=== PATIENT | female | born 2000 | race Caucasian/White ===

== ENCOUNTER 2019-05-14 07:17 | Emergency (ER) | payer MEDICAID, OTHER ==
[~2019-05-14] VITALS: Ht 170 cm; Wt 98.0 kg
[~2019-05-14 07:17] MED LIST: PRX10T PO
--- NOTE | 2019-05-14 07:44 | ED General ---
General Chief Complaint: Psych/Social Disorder Stated Complaint: ANXIETY Nursing Triage Note: Patient reports having a 'panic attack' starting 1 hour prior to arrival. states is having an arguement with her significant other. History of Present Illness Date Seen by Provider: May 14, 2019 Time Seen by Provider: 07:39 Initial Comments 18 yo female states she has long hx of depression currently taking generic prozac and gets panic attacks from time to time this AM had argument with SO, feels very anxious states unable to relax, not sleeping, not eating much has pressure in chest this AM but not concerned about medical condition no hx of asthma or any cardiac issues, and started after argument Allergies and Home Medications Allergies Coded Allergies: Penicillins (Verified Allergy, Unknown, Hives, 05/14/19) Home Medications Paroxetine Hcl 10 Mg Tablet, 1 TAB PO DAILY, (Reported) Patient Home Medication List Home Medication List Reviewed: Yes Review of Systems Review of Systems Constitutional: no symptoms reported EENTM: no symptoms reported Respiratory: no symptoms reported Cardiovascular: chest pain Gastrointestinal: no symptoms reported Genitourinary: no symptoms reported LMP: May 14, 2019 Musculoskeletal: no symptoms reported Skin: no symptoms reported Psychiatric/Neurological: Anxiety Past Liduqbs-Chtlfk-Kztmsc Hx Patient Social History Alcohol Use: Occasionally Uses Recreational Drug Use: No Recent Foreign Travel: No Contact w/Someone Who Travel: No Recent Infectious Disease Expo: No Ebola Symptoms: Denies Symptoms Listed Past Medical History Surgeries: Yes (tubes in ear) Respiratory: No Cardiac: No Neurological: No Reproductive Disorders: No Sexually Transmitted Disease: No Gastrointestinal: No Musculoskeletal: No Endocrine: No HEENT: No Cancer: No Psychosocial: Yes Sleep Difficulties, Anxiety, Depression Integumentary: No Blood Disorders: No Physical Exam Vital Signs Vital Signs - First Documented 05/14/19 07:21 Temp 37.0 Pulse 100 Resp 18 B/P (MAP) 129/82 Capillary Refill : Height, Weight, BMI Height: 5'6" Weight: 160lbs. oz. 72.240137un; 33.00 BMI Method:Stated General Appearance: Anxious Eyes: Bilateral Eye PERRL, Bilateral Eye EOMI HEENT: TMs Normal, Pharynx Normal Neck: Supple Respiratory: Lungs Clear, Normal Breath Sounds Cardiovascular: Regular Rate, Rhythm, No Murmur Gastrointestinal: Normal Bowel Sounds, Non Tender, Soft Back: Normal Inspection Extremity: Normal Inspection Neurologic/Psychiatric: Alert, Oriented x3, No Motor/Sensory Deficits, computer networking instructor adjunct II- XII Norm as Tested Skin: Warm/Dry Progress/Results/Core Measures Suspected Sepsis SIRS Temperature: Pulse: Respiratory Rate: Blood Pressure / Mean: Results/Orders Vital Signs/I&O 05/14/19 07:21 Temp 37.0 Pulse 100 Resp 18 B/P (MAP) 129/82 Capillary Refill : Progress Note : Progress Note pt given Ativan 2mg IM is somewhat better pt says she has occ had thoughts of self harm, but would never do anything has a daughter to take care of ti Rx ativan and ask her to follow up locally soon for cont mental health care Departure Impression Primary Impression: Anxiety Disposition: 01 HOME, SELF-CARE Condition: Stable Departure-Patient Inst. Decision time for Depature: 08:25 Referrals: NO,LOCAL PHYSICIAN (PCP/Family) Primary Care Physician Patient Instructions: Panic Disorder (DC) Add. Discharge Instructions: please follow up soon at [facility] or with [facility] [phone] discharge instructions reviewed with patient Scripts Lorazepam (Ativan) 1 Mg Tablet 1 MG SL BID PRN for ANXIETY for 7 Days, #14 TAB Prov: TANISHA MARTIN MD 05/14/19 TANISHA MARTIN MD May 14, 2019 07:44
[2019-05-14] MEDS ORDERED: LORazepam INJ 2 MG/ML (ATIVAN) VIAL IM ONE (07:45)
[2019-05-14] MEDS ORDERED: LORA-405 SL (07:52)
== END 2019-05-14 08:38 | disposition home or self-care (01) ==
LOC: ER FS 07:17
DX: F41.9 Anxiety disorder, unspecified (principal); F32.9 Major depressive disorder, single episode, unspecified; Z88.0 Allergy status to penicillin
CPT/HCPCS: 99283

== ENCOUNTER 2020-02-25 22:56 | Emergency (ER) | payer MEDICAID ==
[~2020-02-25 22:56] MED LIST changes: +LORA-405 SL
--- NOTE | 2020-02-25 23:23 | ED General ---
General Chief Complaint: General Problems/Pain Stated Complaint: WITHDRAL SYMPTOMS Nursing Triage Note: Pt states that she thinks she is still having withdrawal symptoms from stopping her antidepressant. Pt was taking Vraylar and stopped it about 3 weeks ago. Pt felt like she was having withdrawal symptoms and restarted the medication 3 days ago but still isn't feeling back to normal. Nursing Sepsis Screen: No Definite Risk History of Present Illness Date Seen by Provider: Feb 25, 2020 Time Seen by Provider: 23:22 Initial Comments Patient presents emergency department for evaluation of multiple symptoms including malaise fatigue anxiety chills tachycardia nausea and vomiting. Patient says that she stopped taking her antidepressant regular and her phentermine 3 weeks ago and says she has been feeling poorly since that time with fogginess and anxiety in her head and started back taking it 3 days ago and says that it has not helped and she has been having nausea and vomiting and unable to hold down foods for the past 3-4 days. She says she feels dehydrated. She denies any pain including no chest pain or abdominal pain and no shortness of breath cough congestion fevers unilateral weakness numbness or tingling. She says she feels that she is having withdrawals possibly from the antidepressant. She says she does not drink alcohol but she does smoke marijuana on an almost daily basis but not over the past several days. She is in no obvious distress with normal vital signs other than possible tachycardia at 150 bpm on the EKG and on initial vital signs however while I'm in the room her heart rate is at 120 on the monitor. Allergies and Home Medications Allergies Coded Allergies: Penicillins (Verified Allergy, Unknown, Hives, 05/14/19) Home Medications Lorazepam 1 Mg Tablet, 1 MG SL BID PRN for ANXIETY Prescribed by: TANISHA MARTIN on 05/14/19 0752 Paroxetine Hcl 10 Mg Tablet, 1 TAB PO DAILY, (Reported) Patient Home Medication List Home Medication List Reviewed: Yes Review of Systems Review of Systems Constitutional: malaise EENTM: no symptoms reported Respiratory: no symptoms reported Cardiovascular: no symptoms reported Gastrointestinal: no symptoms reported Genitourinary: no symptoms reported Musculoskeletal: no symptoms reported Skin: no symptoms reported Psychiatric/Neurological: No Symptoms Reported Hematologic/Lymphatic: No Symptoms Reported Past Hywotpx-Npmyng-Aqfffa Hx Patient Social History Recent Foreign Travel: No Contact w/Someone Who Travel: No Recent Infectious Disease Expo: No Past Medical History Surgeries: Yes (tubes in ear) Respiratory: No Cardiac: No Neurological: No Reproductive Disorders: No Sexually Transmitted Disease: No Gastrointestinal: No Musculoskeletal: No Endocrine: No HEENT: No Cancer: No Psychosocial: Yes Sleep Difficulties, Anxiety, Depression Integumentary: No Blood Disorders: No Physical Exam Vital Signs Vital Signs - First Documented 02/25/20 23:00 Temp 37.6 Pulse 155 Resp 20 B/P (MAP) 142/77 (98) Pulse Ox 100 O2 Delivery Room Air Capillary Refill : Less Than 3 Seconds Height, Weight, BMI Height: 5'6" Weight: 160lbs. oz. [id number]; 33.00 BMI Method:Stated General Appearance: No Apparent Distress, WD/WN HEENT: PERRL/EOMI Neck: Supple Respiratory: Lungs Clear, No Respiratory Distress Cardiovascular: Tachycardia Gastrointestinal: Non Tender, Soft Back: Normal Inspection Extremity: Normal Capillary Refill Neurologic/Psychiatric: Alert, Oriented x3 Skin: Warm/Dry Progress/Results/Core Measures Suspected Sepsis Recent Fever Within 48 Hours: No Infection Criteria Present: None New/Unexplained Altered Menta: No Sepsis Screen: No Definite Risk SIRS Temperature: Pulse: 155 Respiratory Rate: 20 Laboratory Tests 02/25/20 23:37: White Blood Count 11.8H Blood Pressure 142 /77 Mean: 98 Laboratory Tests 02/25/20 23:37: Creatinine 0.74, INR Comment 1.0, Platelet Count 344, Total Bilirubin 0.6 Results/Orders Lab Results Laboratory Tests Test 02/25/20 23:26 02/25/20 23:37 Range/Units Urine Color STRAW Urine Clarity CLEAR Urine pH 6.5 5-9 Urine Specific [place] <=1.005 1.016-1.022 Urine Protein NEGATIVE NEGATIVE Urine Glucose (UA) NEGATIVE NEGATIVE Urine Ketones NEGATIVE NEGATIVE Urine Nitrite NEGATIVE NEGATIVE Urine Bilirubin NEGATIVE NEGATIVE Urine Urobilinogen 0.2 < = 1.0 MG/DL Urine Leukocyte Esterase TRACE H NEGATIVE Urine RBC (Auto) NEGATIVE NEGATIVE Urine RBC NONE /HPF Urine WBC 5-10 H /HPF Urine Squamous Epithelial Cells 2-5 /HPF Urine Crystals NONE /LPF Urine Bacteria TRACE /HPF Urine Casts NONE /LPF Urine Mucus NEGATIVE /LPF Urine Culture Indicated YES Urine Test NEGATIVE NEGATIVE Urine Opiates Screen NEGATIVE NEGATIVE Urine Oxycodone Screen NEGATIVE NEGATIVE Urine Methadone Screen NEGATIVE NEGATIVE Urine Propoxyphene Screen NEGATIVE NEGATIVE Urine Barbiturates Screen NEGATIVE NEGATIVE Ur Tricyclic Antidepressants Screen NEGATIVE NEGATIVE Urine Phencyclidine Screen NEGATIVE NEGATIVE Urine Amphetamines Screen NEGATIVE NEGATIVE Urine Methamphetamines Screen NEGATIVE NEGATIVE Urine Benzodiazepines Screen NEGATIVE NEGATIVE Urine Cocaine Screen NEGATIVE NEGATIVE Urine Cannabinoids Screen POSITIVE H NEGATIVE White Blood Count 11.8 H 4.3-11.0 10^3/uL Red Blood Count 4.78 4.35-5.85 10^6/uL Hemoglobin 14.8 11.5-16.0 G/DL Hematocrit 41 35-52 % Mean Corpuscular Volume 86 80-99 FL Mean Corpuscular Hemoglobin 31 25-34 PG Mean Corpuscular Hemoglobin Concent 36 32-36 G/DL Red Cell Distribution Width 12.9 10.0-14.5 % Platelet Count 344 130-400 10^3/uL Mean Platelet Volume 10.7 H 7.4-10.4 FL Immature Granulocyte % (Auto) 0 % Neutrophils (%) (Auto) 58 42-75 % Lymphocytes (%) (Auto) 33 12-44 % Monocytes (%) (Auto) 9 0-12 % Eosinophils (%) (Auto) 0 0-10 % Basophils (%) (Auto) 0 0-10 % Neutrophils # (Auto) 6.8 1.8-7.8 X 10^3 Lymphocytes # (Auto) 3.9 1.0-4.0 X 10^3 Monocytes # (Auto) 1.0 0.0-1.0 X 10^3 Eosinophils # (Auto) 0.0 0.0-0.3 10^3/uL Basophils # (Auto) 0.0 0.0-0.1 10^3/uL Immature Granulocyte # (Auto) 0.0 0.0-0.1 10^3/uL Prothrombin Time 13.3 12.2-14.7 SEC INR Comment 1.0 0.8-1.4 Activated Partial Thromboplast Time 28 24-35 SEC D-Dimer 0.34 0.00-0.49 UG/ML Sodium Level 135 135-145 MMOL/L Potassium Level 3.5 L 3.6-5.0 MMOL/L Chloride Level 100 98-107 MMOL/L Carbon Dioxide Level 22 21-32 MMOL/L Anion Gap 13 5-14 MMOL/L Blood Urea Nitrogen 10 7-18 MG/DL Creatinine 0.74 0.60-1.30 MG/DL Estimat Glomerular Filtration Rate > 60 BUN/Creatinine Ratio 14 Glucose Level 115 H 70-105 MG/DL Calcium Level 9.9 8.5-10.1 MG/DL Corrected Calcium 9.5 8.5-10.1 MG/DL Magnesium Level 1.9 1.6-2.4 MG/DL Total Bilirubin 0.6 0.1-1.0 MG/DL Aspartate Amino Transf (AST/SGOT) 13 5-34 U/L Alanine Aminotransferase (ALT/SGPT) 9 0-55 U/L Alkaline Phosphatase 90 40-136 U/L Troponin I < 0.30 <0.30 NG/ML Pro-B-Type Natriuretic Peptide < 5.0 <75.0 PG/ML Total Protein 7.9 6.4-8.2 GM/DL Albumin 4.5 3.2-4.5 GM/DL Serum Alcohol < 10 <10 MG/DL My Orders Orders - KOFI LEVY DO Cbc With Automated Diff (02/25/20:18) Comprehensive Metabolic Panel (02/25/20 23:18) Drug Screen Stat (Urine) (02/25/20 23:18) Alcohol (02/25/20 23:18) Iv/Invasive Line Insertion .IV start (02/25/20 23:18) Hcg,Qualitative Urine (02/25/20:18) Ua Culture If Indicated (02/25/20 23:18) Troponin I Fs (02/25/20 23:18) Probnp Fs (02/25/20 23:18) Partial Thromboplastin Time (02/25/20 23:18) Fibrin Degradation Products (02/25/20:18) Protime With Inr (02/25/20 23:18) Magnesium (02/25/20 23:18) Ns Iv 1000 Ml (Sodium Chloride 0.9%) (02/25/20 23:30) Lorazepam Injection (Ativan Injection) (02/25/20 23:30) Urine Culture (02/25/20 23:26) Lr 1000 Ml Wide Open (02/26/20 00:30) Lorazepam Injection (Ativan Injection) (02/26/20 00:30) Potassium Chloride (Tablet) (K Dur Table (02/26/20 00:30) Medications Given in ED Current Medications Medications Dose Ordered Sig/Roland Route Start Time Stop Time Status Last Admin Dose Admin Lorazepam 1 mg ONCE ONCE IVP 02/25/20 23:30 02/25/20 23:32 DC 02/25/20 23:38 1 MG Vital Signs/I&O 02/25/20 23:00 Temp 37.6 Pulse 155 Resp 20 B/P (MAP) 142/77 (98) Pulse Ox 100 O2 Delivery Room Air Capillary Refill : Less Than 3 Seconds Blood Pressure Mean: 98 Progress Note : Progress Note Patient with likely anxiety contributing to her symptoms however she could possibly have marijuana contributing and dehydration and electrolyte abnormalities. I will check labs treat her with Ativan saline fluids and reassess. Patient has fairly normal workup however she does have signs of mild UTI and she did say she is having some increased urination so I will treat her with keflex for this. She also has hypokalemia will be given a liter of LR in addition to potassium supplementation and told to increase potassium in her diet. Her tachycardia improved significantly down to 105 after the Ativan and fluids and says that she feels much more calm and feels better. She says she has an appointment with her primary care provider later today and I told her to keep that follow-up and come back to the ED sooner with worsening pain neurologic changes shortness of breath with or general concerns. Patient aware and agreeable with plan and verbalized understanding of the above instructions. Departure Impression Primary Impression: Nausea & vomiting Qualified Codes: R11.2 - Nausea with vomiting, unspecified Additional Impressions: Cannabinosis Anxiety Tachycardia Hypokalemia Disposition: 01 HOME, SELF-CARE Condition: Stable Departure-Patient Inst. Referrals: NO,LOCAL PHYSICIAN (PCP/Family) Primary Care Physician Patient Instructions: Anxiety, Adult (DC) Add. Discharge Instructions: Drink plenty of fluids and eat a soft diet. Avoid marijuana. All discharge instructions reviewed with patient and/or family. Voiced understanding. Scripts Cephalexin (Keflex) 500 Mg Capsule 500 MG PO BID for 5 Days, CAP Prov: KOFI LEVY DO 02/26/20 Ondansetron (Ondansetron Odt) 4 Mg Tab.rapdis 4 MG PO Q6H PRN for NAUSEA/VOMITING-1ST LINE, #10 TAB Prov: KOFI LEVY DO 02/26/20 Lorazepam (Ativan) 0.5 Mg Tablet 0.5 MG PO TID PRN for ANXIETY for 2 Days, #6 TAB Prov: KOFI LEVY DO 02/26/20 Ciprofloxacin HCl (Cipro) 250 Mg Tablet 250 MG PO BID, #6 TAB Prov: KOFI LEVY DO 02/26/20 KOFI LEVY DO Feb 25, 2020 23:23
[2020-02-25] MEDS ORDERED: NS IV 1000 ML 1,000 ML IV SCH (23:30)
[2020-02-25] MEDS ORDERED: LORazepam INJ 2 MG/ML (ATIVAN) VIAL IVP ONE (23:30)
[2020-02-25 23:32] LABS: HCG,QUALITATIVE URINE NEGATIVE (NEGATIVE)
[2020-02-25 23:34] LABS: CLARITY,URINE CLEAR; COLOR,URINE STRAW
[2020-02-25 23:35] LABS: BACTERIA,URINE TRACE /HPF; BILIRUBIN,URINE NEGATIVE (NEGATIVE); GLUCOSE, URINE (UA) NEGATIVE (NEGATIVE); KETONES,URINE NEGATIVE (NEGATIVE); LEUKOCYTE ESTERASE ,URINE TRACE (NEGATIVE); NITRITE,URINE NEGATIVE (NEGATIVE); PH,URINE 6.5 (5-9); PROTEIN,URINE NEGATIVE (NEGATIVE)
[2020-02-25 23:41] LABS: AMPHETAMINE SCREEN, URINE NEGATIVE (NEGATIVE); BARBITURATE SCREEN URINE NEGATIVE (NEGATIVE); BENZODIAZEPINES SCREEN URINE NEGATIVE (NEGATIVE); CANNABINOID SCREEN, URINE POSITIVE (NEGATIVE); COCAINE SCREEN URINE NEGATIVE (NEGATIVE); METHADONE STAT NEGATIVE (NEGATIVE); METHAMPHETAMINE SCREEN URINE S NEGATIVE (NEGATIVE); OPIATE SCREEN URINE NEGATIVE (NEGATIVE); OXYCODONE STAT NEGATIVE (NEGATIVE); PROPOXYPHENE STAT NEGATIVE (NEGATIVE); TRICYCLIC ANTIDEPRESSANTS SCRE NEGATIVE (NEGATIVE)
[2020-02-25 23:43] LABS: HEMATOCRIT 41 % (35-52); HEMOGLOBIN 14.8 G/DL (11.5-16.0); MEAN CORPUSCULAR HEMOGLOBIN 31 PG (25-34); MEAN CORPUSCULAR VOLUME 86 FL (80-99); WHITE BLOOD COUNT 11.8 10^3/uL (4.3-11.0)
[2020-02-25 23:44] LABS: BASOPHILS % (AUTO) 0 % (0-10); EOSINOPHILS % (AUTO) 0 % (0-10); LYMPHOCYTES # (AUTO) 3.9 X 10^3 (1.0-4.0); LYMPHOCYTES % (AUTO) 33 % (12-44); MEAN CORPUSCULAR HGB CONC 36 G/DL (32-36); MEAN PLATELET VOLUME 10.7 FL (7.4-10.4); MONOCYTES % (AUTO) 9 % (0-12); NEUTROPHILS # (AUTO) 6.8 X 10^3 (1.8-7.8); NEUTROPHILS % (AUTO) 58 % (42-75); PLATELET COUNT 344 10^3/uL (130-400)
[2020-02-25 23:55] LABS: PROTHROMBIN TIME PATIENT 13.3 SEC (12.2-14.7)
[2020-02-26 00:01] LABS: FIBRIN DEGRADATION PRODUCTS 0.34 UG/ML (0.00-0.49)
[2020-02-26 00:04] LABS: ALANINE AMINOTRANSFERASE 9 U/L (0-55); ALBUMIN 4.5 GM/DL (3.2-4.5); ALKALINE PHOSPHATASE 90 U/L (40-136); BILIRUBIN,TOTAL 0.6 MG/DL (0.1-1.0); BUN/CREATININE RATIO 14; CALCIUM 9.9 MG/DL (8.5-10.1); CARBON DIOXIDE 22 MMOL/L (21-32); CHLORIDE 100 MMOL/L (98-107); CREATININE SERUM 0.74 MG/DL (0.60-1.30); GFR ESTIMATED > 60; GLUCOSE 115 MG/DL (70-105); MAGNESIUM 1.9 MG/DL (1.6-2.4); POTASSIUM 3.5 MMOL/L (3.6-5.0); SODIUM 135 MMOL/L (135-145); TOTAL PROTEIN 7.9 GM/DL (6.4-8.2)
[2020-02-26] MEDS ORDERED: CIPR-226 PO (00:24)
[2020-02-26] MEDS ORDERED: ONDA4TAB11 PO (00:24)
[2020-02-26] MEDS ORDERED: LORA-404 PO (00:24)
[2020-02-26] MEDS ORDERED: CEPH-507 PO (00:26)
[2020-02-26] MEDS ORDERED: LACTATED RINGERS 1,000 ML IV SCH (00:30)
[2020-02-26] MEDS ORDERED: KCL 20 MEQ TAB (K-DUR) PO ONE (00:30)
[2020-02-26] MEDS ORDERED: LORazepam INJ 2 MG/ML (ATIVAN) VIAL IVP ONE (00:30)
[2020-02-26 01:04] VITALS: BP 129/76
== END 2020-02-26 01:05 | disposition home or self-care (01) ==
LOC: EDUNIT# 22:56 → ER FS 22:59
DX: R11.2 Nausea with vomiting, unspecified (principal); J66.2 Cannabinosis; F41.9 Anxiety disorder, unspecified; R00.0 Tachycardia, unspecified; E87.6 Hypokalemia; F32.9 Major depressive disorder, single episode, unspecified; Z88.0 Allergy status to penicillin
CPT/HCPCS: 36415; 80053; 80306; 80320; 81000; 83735; 83880; 84484; 84703; 85025; 85379; 85610; 85730; 87088

== ENCOUNTER 2020-04-14 15:15 | Emergency (ER) | payer MEDICAID ==
[~2020-04-14] VITALS: Ht 170 cm; Wt 110.9 kg
[~2020-04-14 15:15] MED LIST changes: +CEPH-507 PO; +CIPR-226 PO; +LORA-404 PO; +ONDA4TAB11 PO
[2020-04-14] MEDS ORDERED: NS IV 1000 ML 1,000 ML IV SCH (15:45)
[2020-04-14 15:53] LABS: BILIRUBIN,URINE NEGATIVE (NEGATIVE); CLARITY,URINE CLEAR; COLOR,URINE YELLOW; GLUCOSE, URINE (UA) NEGATIVE (NEGATIVE); KETONES,URINE NEGATIVE (NEGATIVE); LEUKOCYTE ESTERASE ,URINE 1+ (NEGATIVE); NITRITE,URINE NEGATIVE (NEGATIVE); PH,URINE 6.5 (5-9); PROTEIN,URINE NEGATIVE (NEGATIVE); RBC,URINE RARE /HPF
[2020-04-14 15:54] LABS: BACTERIA,URINE TRACE /HPF; SQUAMOUS EPITHELIAL CELL,UR 0-2 /HPF
[2020-04-14 15:56] LABS: AMPHETAMINE SCREEN, URINE NEGATIVE (NEGATIVE); BARBITURATE SCREEN URINE NEGATIVE (NEGATIVE); BENZODIAZEPINES SCREEN URINE NEGATIVE (NEGATIVE); CANNABINOID SCREEN, URINE POSITIVE (NEGATIVE); COCAINE SCREEN URINE NEGATIVE (NEGATIVE); METHADONE STAT NEGATIVE (NEGATIVE); METHAMPHETAMINE SCREEN URINE S NEGATIVE (NEGATIVE); OPIATE SCREEN URINE NEGATIVE (NEGATIVE); OXYCODONE STAT NEGATIVE (NEGATIVE); PROPOXYPHENE STAT NEGATIVE (NEGATIVE); TRICYCLIC ANTIDEPRESSANTS SCRE NEGATIVE (NEGATIVE)
[2020-04-14 16:16] LABS: HEMATOCRIT 38 % (35-52); HEMOGLOBIN 13.4 G/DL (11.5-16.0); MEAN CORPUSCULAR HEMOGLOBIN 30 PG (25-34); MEAN CORPUSCULAR HGB CONC 35 G/DL (32-36); MEAN CORPUSCULAR VOLUME 86 FL (80-99); MEAN PLATELET VOLUME 10.7 FL (7.4-10.4); NEUTROPHILS % (AUTO) 65 % (42-75); PLATELET COUNT 343 10^3/uL (130-400); WHITE BLOOD COUNT 11.3 10^3/uL (4.3-11.0)
[2020-04-14 16:17] LABS: BASOPHILS % (AUTO) 0 % (0-10); EOSINOPHILS # (AUTO) 0.1 10^3/uL (0.0-0.3); EOSINOPHILS % (AUTO) 0 % (0-10); LYMPHOCYTES # (AUTO) 3.2 X 10^3 (1.0-4.0); LYMPHOCYTES % (AUTO) 28 % (12-44); MONOCYTES # (AUTO) 0.7 X 10^3 (0.0-1.0); MONOCYTES % (AUTO) 6 % (0-12); NEUTROPHILS # (AUTO) 7.3 X 10^3 (1.8-7.8)
[2020-04-14 16:41] LABS: ALANINE AMINOTRANSFERASE 11 U/L (0-55); ALKALINE PHOSPHATASE 80 U/L (40-136); BILIRUBIN,TOTAL 0.3 MG/DL (0.1-1.0); BUN/CREATININE RATIO 21; CALCIUM 9.8 MG/DL (8.5-10.1); CARBON DIOXIDE 24 MMOL/L (21-32); CHLORIDE 105 MMOL/L (98-107); CREATININE SERUM 0.57 MG/DL (0.60-1.30); GFR ESTIMATED > 60; GLUCOSE 93 MG/DL (70-105); POTASSIUM 3.8 MMOL/L (3.6-5.0); SODIUM 140 MMOL/L (135-145); TOTAL PROTEIN 7.3 GM/DL (6.4-8.2)
[2020-04-14 16:42] LABS: ALBUMIN 4.2 GM/DL (3.2-4.5)
--- NOTE | 2020-04-14 17:29 | ED General ---
General Chief Complaint: OB < 20 WEEKS Stated Complaint: LLQ PAIN Nursing Triage Note: Patient states she is but is unsure how far along. Thinks LMP was in February. Was treated last week for a UTI, went to urgent care this morning due to still having itching. States she was told that she has a trace of a UtI and STI but they wanted to wait until tomorrow for her doctor to treat her. 1 hour ago had some cramping in LLQ. Nursing Sepsis Screen: No Definite Risk Source of Information: Patient History of Present Illness Date Seen by Provider: Apr 14, 2020 Time Seen by Provider: 17:39 Initial Comments Patient is a 19-year-old G2, P0, estimated 4 weeks gestation female who presents with vaginal itching, cramping and discharge intermittent x1 week with positive home test 2 weeks ago and confirmed at urgent care. Patient was subsequently diagnosed with urinary tract infection and completed 3-day course of antibiotics without relief of symptoms. She was reevaluated today and diagnosed with trichomoniasis and group B strep. Patient was instructed to follow-up with her PCP in 7 days and was unsatisfied with the medical advice offered prompting her to come to the emergency department. She denies lower abdominal pain, vaginal bleeding,'s spotting, cramping. Urinary frequency urgency and flank pain. No hematuria. Last known menstrual period was 02/24/2020. Timing/Duration: 1 Week, Other Severity: Mild Modifying Factors: improves with Other (Itching) Associated Systoms: Denies Symptoms Allergies and Home Medications Allergies Coded Allergies: Penicillins (Verified Allergy, Unknown, Hives, 05/14/19) Home Medications Cephalexin 500 Mg Capsule, 500 MG PO BID Prescribed by: KOFI LEVY on 02/26/2025 Ciprofloxacin HCl 250 Mg Tablet, 250 MG PO BID Prescribed by: KOFI LEVY on 02/26/2023 Lorazepam 1 Mg Tablet, 1 MG SL BID PRN for ANXIETY Prescribed by: TANISHA MARTIN on 05/14/19 0752 Lorazepam 0.5 Mg Tablet, 0.5 MG PO TID PRN for ANXIETY Prescribed by: KOFI LEVY on 02/26/2023 Ondansetron 4 Mg Tab.rapdis, 4 MG PO Q6H PRN for NAUSEA/VOMITING-1ST LINE Prescribed by: KOFI LEVY on 02/26/2023 Paroxetine Hcl 10 Mg Tablet, 1 TAB PO DAILY, (Reported) Patient Home Medication List Home Medication List Reviewed: Yes Review of Systems Review of Systems Constitutional: see HPI EENTM: see HPI Respiratory: see HPI Cardiovascular: see HPI Gastrointestinal: see HPI Genitourinary: see HPI Musculoskeletal: no symptoms reported Skin: no symptoms reported Psychiatric/Neurological: No Symptoms Reported Hematologic/Lymphatic: See HPI Immunological/Allergic: see HPI All Other Systems Reviewed Negative Unless Noted: Yes Past Woumqhm-Wqjslk-Rutayw Hx Patient Social History Alcohol Use: Denies Use Drug of Choice: marijuana Smoking Status: Never a Smoker 2nd Hand Smoke Exposure: No Recent Infectious Disease Expo: No Recent Hopitalizations: No Past Medical History Surgeries: Yes (tubes in ear) Respiratory: No Cardiac: No Neurological: No Reproductive Disorders: No Sexually Transmitted Disease: No Genitourinary: No Gastrointestinal: No Musculoskeletal: No Endocrine: No HEENT: No Cancer: No Psychosocial: Yes Sleep Difficulties, Anxiety, Depression Integumentary: No Blood Disorders: No Physical Exam Vital Signs Vital Signs - First Documented 04/14/20 15:22 Temp 35.9 Pulse 156 Resp 16 B/P (MAP) 125/69 (87) Pulse Ox 100 Capillary Refill : Less Than 3 Seconds Height, Weight, BMI Height: 5'6" Weight: 160lbs. oz. 72.468532io; 38.00 BMI Method:Stated General Appearance: No Apparent Distress, WD/WN Eyes: Bilateral Eye Normal Inspection, Bilateral Eye PERRL, Bilateral Eye EOMI HEENT: PERRL/EOMI Neck: Full Range of Motion, Non Tender, Supple Respiratory: Chest Non Tender, Lungs Clear Cardiovascular: Regular Rate, Rhythm Gastrointestinal: Non Tender, Soft Genital/Rectal: Other Extremity: Normal Capillary Refill, Normal Inspection Neurologic/Psychiatric: Alert, Oriented x3 Focused Exam Sepsis Stage: Ruled Out Progress/Results/Core Measures Suspected Sepsis Recent Fever Within 48 Hours: No Infection Criteria Present: None New/Unexplained Altered Menta: No Sepsis Screen: No Definite Risk SIRS Temperature: Pulse: 156 Respiratory Rate: 16 Laboratory Tests 04/14/20 15:46: White Blood Count 11.3H Blood Pressure 125 /69 Mean: 87 Laboratory Tests 04/14/20 15:46: Creatinine 0.57L, Platelet Count 343, Total Bilirubin 0.3 Results/Orders Lab Results Laboratory Tests Test 04/14/20 15:20 04/14/20 15:46 Range/Units Urine Color YELLOW Urine Clarity CLEAR Urine pH 6.5 5-9 Urine Specific [place] 1.020 1.016-1.022 Urine Protein NEGATIVE NEGATIVE Urine Glucose (UA) NEGATIVE NEGATIVE Urine Ketones NEGATIVE NEGATIVE Urine Nitrite NEGATIVE NEGATIVE Urine Bilirubin NEGATIVE NEGATIVE Urine Urobilinogen 0.2 < = 1.0 MG/DL Urine Leukocyte Esterase 1+ H NEGATIVE Urine RBC (Auto) NEGATIVE NEGATIVE Urine RBC RARE /HPF Urine WBC 5-10 H /HPF Urine Squamous Epithelial Cells 0-2 /HPF Urine Crystals NONE /LPF Urine Bacteria TRACE /HPF Urine Casts NONE /LPF Urine Mucus NEGATIVE /LPF Urine Culture Indicated YES Urine Opiates Screen NEGATIVE NEGATIVE Urine Oxycodone Screen NEGATIVE NEGATIVE Urine Methadone Screen NEGATIVE NEGATIVE Urine Propoxyphene Screen NEGATIVE NEGATIVE Urine Barbiturates Screen NEGATIVE NEGATIVE Ur Tricyclic Antidepressants Screen NEGATIVE NEGATIVE Urine Phencyclidine Screen NEGATIVE NEGATIVE Urine Amphetamines Screen NEGATIVE NEGATIVE Urine Methamphetamines Screen NEGATIVE NEGATIVE Urine Benzodiazepines Screen NEGATIVE NEGATIVE Urine Cocaine Screen NEGATIVE NEGATIVE Urine Cannabinoids Screen POSITIVE H NEGATIVE White Blood Count 11.3 H 4.3-11.0 10^3/uL Red Blood Count 4.41 4.35-5.85 10^6/uL Hemoglobin 13.4 11.5-16.0 G/DL Hematocrit 38 35-52 % Mean Corpuscular Volume 86 80-99 FL Mean Corpuscular Hemoglobin 30 25-34 PG Mean Corpuscular Hemoglobin Concent 35 32-36 G/DL Red Cell Distribution Width 13.2 10.0-14.5 % Platelet Count 343 130-400 10^3/uL Mean Platelet Volume 10.7 H 7.4-10.4 FL Immature Granulocyte % (Auto) 0 % Neutrophils (%) (Auto) 65 42-75 % Lymphocytes (%) (Auto) 28 12-44 % Monocytes (%) (Auto) 6 0-12 % Eosinophils (%) (Auto) 0 0-10 % Basophils (%) (Auto) 0 0-10 % Neutrophils # (Auto) 7.3 1.8-7.8 X 10^3 Lymphocytes # (Auto) 3.2 1.0-4.0 X 10^3 Monocytes # (Auto) 0.7 0.0-1.0 X 10^3 Eosinophils # (Auto) 0.1 0.0-0.3 10^3/uL Basophils # (Auto) 0.0 0.0-0.1 10^3/uL Immature Granulocyte # (Auto) 0.0 0.0-0.1 10^3/uL Sodium Level 140 135-145 MMOL/L Potassium Level 3.8 3.6-5.0 MMOL/L Chloride Level 105 98-107 MMOL/L Carbon Dioxide Level 24 21-32 MMOL/L Anion Gap 11 5-14 MMOL/L Blood Urea Nitrogen 12 7-18 MG/DL Creatinine 0.57 L 0.60-1.30 MG/DL Estimat Glomerular Filtration Rate > 60 BUN/Creatinine Ratio 21 Glucose Level 93 70-105 MG/DL Calcium Level 9.8 8.5-10.1 MG/DL Corrected Calcium 9.6 8.5-10.1 MG/DL Total Bilirubin 0.3 0.1-1.0 MG/DL Aspartate Amino Transf (AST/SGOT) 14 5-34 U/L Alanine Aminotransferase (ALT/SGPT) 11 0-55 U/L Alkaline Phosphatase 80 40-136 U/L Total Protein 7.3 6.4-8.2 GM/DL Albumin 4.2 3.2-4.5 GM/DL Human Chorionic Gonadotropin, Quant 05141 H <5 MIU/ML My Orders Orders - ELIEZER LANE DO Cbc With Automated Diff (04/14/20 15:37) Comprehensive Metabolic Panel (04/14/20 15:37) Ua Culture If Indicated (04/14/20 15:37) Drug Screen Stat (Urine) (04/14/20 15:37) Ekg-Prn For Chest Pain Or Rhyt (04/14/20 15:37) Ns Iv 1000 Ml (Sodium Chloride 0.9%) (04/14/20 15:45) Hcg,Quantitative (04/14/20 15:37) Ekg Tracing (04/14/20 15:44) Urine Culture (04/14/20 15:20) Vital Signs/I&O 04/14/20 15:22 Temp 35.9 Pulse 156 Resp 16 B/P (MAP) 125/69 (87) Pulse Ox 100 Capillary Refill : Less Than 3 Seconds Blood Pressure Mean: 87 Departure Communication (Admissions) Outpatient labs obtained which confirms diagnosis of trichomoniasis and group B strep. Will place on clindamycin with instructions to follow-up with PCP/OB as scheduled. Return precautions reviewed. Impression Primary Impression: Dysuria Additional Impression: Trichomoniasis Disposition: HOME, SELF-CARE Condition: Stable Departure-Patient Inst. Referrals: NO,LOCAL PHYSICIAN (PCP/Family) Primary Care Physician Patient Instructions: Bacterial Vaginosis (DC), Trichomoniasis (DC) Add. Discharge Instructions: Please follow-up with your PCP as scheduled and take newly prescribed medication as directed. Return to the ED if new or worsening symptoms. All discharge instructions reviewed with patient and/or family. Voiced understanding. Scripts Clindamycin HCl (Clindamycin HCl) 300 Mg Capsule 300 MG PO TID, #21 CAP Prov: ELIEZER LANE DO 04/14/[address] DO Apr 14, 2020 17:29
[2020-04-14] MEDS ORDERED: CLIN300C12 PO (17:49)
[2020-04-14 17:55] VITALS: BP 116/81
== END 2020-04-14 17:56 | disposition home or self-care (01) ==
LOC: EDUNIT# 15:15 → ER FS 15:18
DX: O26.891 Other specified pregnancy related conditions, first trimester (principal); R30.0 Dysuria; A59.9 Trichomoniasis, unspecified; F41.9 Anxiety disorder, unspecified; F32.9 Major depressive disorder, single episode, unspecified; Z88.0 Allergy status to penicillin; Z3A.01 Less than 8 weeks gestation of pregnancy
CPT/HCPCS: 36415; 80053; 80306; 81000; 84702; 84703; 85025; 87088; 93005